=== PATIENT | male | born 1970 | race Caucasian/White ===

== ENCOUNTER 2020-01-24 08:29 | Day surgery (SDC) | payer BC ==
[~2020-01-24 08:29] MED LIST: Lactated Ringers 1,000 ML IV SCH; Sodium Chloride 0.9% 10 ML SDV IV PRN; Sodium Chloride 0.9% 10 ML Syringe FLUSH PRN; Sodium Chloride 0.9% 2.5 ML Syringe FLUSH PRN
--- NOTE | 2020-01-24 09:41 | PCM.PREANE ---
Preanesthetic Assessment - Anesthesia/Transfusion/Family Hx Anesthesia History: Prior Anesthesia Without Reaction Family History of Anesthesia Reaction: No Transfusion History: No Prior Transfusion(s) - Review of Systems General: No Symptoms Pulmonary: No Symptoms Cardiovascular: No Symptoms Gastrointestinal: No Symptoms Neurological: No Symptoms Other: Reports: None - Physical Assessment NPO Status Date: 01/23/20 NPO Status Time: 23:00 Vital Signs: Last Vital Signs Temp 98.2 F 01/24/20 08:50 Pulse 75 01/24/20 08:50 Resp 16 01/24/20 08:50 BP 136/82 01/24/20 08:50 Pulse Ox 96 01/24/20 08:50 Height: 6 ft Weight: 97.522 kg ASA Class: 2 Mental Status: Alert & Oriented x3 Airway Class: Mallampati = 2 Dentition: Reports: Normal Dentition ROM/Head Extension: Full Lungs: Clear to Auscultation, Normal Respiratory Effort, Crackles Cardiovascular: Regular Rhythm - Allergies Allergies/Adverse Reactions: Allergies Allergy/AdvReac Type Severity Reaction Status Date / Time No Known Allergies Allergy Verified 01/17/20 10:27 - Blood Blood Available: No - Anesthesia Plan Pre-Op Medication Ordered: None (PMH: htn) - Acknowledgements Anesthesia Type Planned: MAC Pt an Appropriate Candidate for the Planned Anesthesia: Yes Alternatives and Risks of Anesthesia Discussed w Pt/Guardian: Yes Pt/Guardian Understands and Agrees with Anesthesia Plan: Yes PreAnesthesia Questionnaire HEENT History: Reports: Other (See Below) Other HEENT History: wears contacts Cardiovascular History: Reports: Hypertension Musculoskeletal History: Reports: Fracture Other Musculoskeletal History: hx of fx left clavicle and left ring finger Neurological History: Reports: Migraines Other Neuro History: takes Ibuprofen for Migraines - Past Surgical History Head Surgeries/Procedures: Reports: None GI Surgical History: Reports: Hernia, Inguinal Other GI Surgeries/Procedures: right Inguinal Hernia repair as a baby - SUBSTANCE USE Smoking Status *Q: Never Smoker Recreational Drug Use History: No - HOME MEDS Home Medications: Home Meds Calcium Carbonate/Vitamin D3 [Calcium 500 mg Chewable Tablet] 2 tab PO DAILY [History] Cetirizine [ZyrTEC] 10 mg PO DAILY 01/17/20 [History] Ibuprofen 200 mg PO ASDIRECTED PRN 01/17/20 [History] lisinopriL [Lisinopril] 10 mg PO QAM 01/17/20 [History] - CURRENT (IN HOUSE) MEDS Current Meds: Current Medications Lactated Ringer's (Ringers, Lactated) 1,000 mls @ 125 mls/hr IV ASDIRECTED OCLBY Last Admin: 01/24/20 09:14 Dose: 125 mls/hr Sodium Chloride (Saline Flush) 10 ml FLUSH ASDIRECTED PRN PRN Reason: Keep Vein Open Sodium Chloride (Saline Flush) 2.5 ml FLUSH ASDIRECTED PRN PRN Reason: Keep Vein Open Sodium Chloride (Saline Flush) 10 ml FLUSH ASDIRECTED PRN PRN Reason: Keep Vein Open Sodium Chloride (Saline Flush) 2.5 ml FLUSH ASDIRECTED PRN PRN Reason: Keep Vein Open Sodium Chloride (Normal Saline) 10 ml IV ASDIRECTED PRN PRN Reason: IV Use
[2020-01-24] MEDS ORDERED: Propofol 200 MG/20 ML SDV ONE (10:28)
[2020-01-24] MEDS ORDERED: Glycopyrrolate 0.2 MG/ML SDV ONE (10:29)
[2020-01-24] MEDS ORDERED: Midazolam 1 MG/ML 2 ML SDV ONE (10:29)
[2020-01-24] MEDS ORDERED: fentaNYL 100 MCG/2 ML SDV ONE (10:29)
--- NOTE | 2020-01-24 11:36 | PCM.OPNOTE ---
- General Post-Op/Procedure Note Date of Surgery/Procedure: 01/24/20 Operative Procedure(s): Diagnostic colonoscopy with polypectomy Findings: Small transverse and descending colon polyp, large pedunculated polyp in sigmoid colon @ 25cm. Grade 2 hemorrhoids. Diverticulosis Pre Op Diagnosis: Positive cologuard Post-Op Diagnosis: Transverse colon polyp, descending colon polyp, and sigmoid colon polyp. Diverticulosis. Grade 2 hemorrhoids Anesthesia Technique: MAC Primary Surgeon: Mattie Morris Condition: Good
--- NOTE | 2020-01-24 12:31 | PCM.POSTAN ---
POST ANESTHESIA ASSESSMENT - MENTAL STATUS Mental Status: Alert - VITAL SIGNS Vital Signs: Last Vital Signs Temp 36.2 C 01/24/20 11:32 Pulse 70 01/24/20 11:42 Resp 11 L 01/24/20 11:42 BP 97/66 01/24/20 11:42 Pulse Ox 93 L 01/24/20 11:42 - RESPIRATORY Respiratory Status: Respiratory Rate WNL - CARDIOVASCULAR CV Status: Pulse Rate WNL - GASTROINTESTINAL GI Status: No Symptoms - POST OP HYDRATION Hydration Status: Adequate & Stable
--- NOTE | 2020-01-24 12:31 | PCM48HPAN ---
Post Anesthesia Note - EVALUATION WITHIN 48HRS OF ANESTHETIC Vital Signs in Normal Range: Yes Patient Participated in Evaluation: Yes Respiratory Function Stable: Yes Airway Patent: Yes Cardiovascular Function Stable: Yes Hydration Status Stable: Yes Pain Control Satisfactory: Yes Nausea and Vomiting Control Satisfactory: Yes Mental Status Recovered: Yes Vital Signs: Last Vital Signs Temp 36.2 C 01/24/20 11:32 Pulse 70 01/24/20 11:42 Resp 11 L 01/24/20 11:42 BP 97/66 01/24/20 11:42 Pulse Ox 93 L 01/24/20 11:42
--- NOTE | 2020-01-24 15:08 | OR ---
SURGEON: JHOANA HINES MD DATE OF PROCEDURE: 01/24/2020 PREOPERATIVE DIAGNOSIS: Positive Cologuard test. POSTOPERATIVE DIAGNOSES: 1. Diverticulosis. 2. Grade 2 hemorrhoids. 3. Descending colon polyp. 4. Transverse colon polyp. 5. Sigmoid colon polyp. PROCEDURE PERFORMED: Diagnostic colonoscopy. ANESTHESIA: MAC. INSTRUMENT USED: Olympus colonoscope. EXTENT OF EXAM: To the cecum. PREPARATION: Good. LIMITATIONS: None. INDICATIONS FOR EXAMINATION: The patient is a 49-year-old male who recently underwent a screening Cologuard test. This came back positive. I explained the need for diagnostic colonoscopy with possible polypectomy or biopsy. I explained the procedure, expected perioperative course, and risks. The patient verbalized understanding and wishes to proceed. PROCEDURE IN DETAIL: The patient was brought into the OR and placed on the OR table in supine position. A time-out was completed verifying the patient's name, age, date of , allergies, and procedure to be performed. Monitored anesthesia care was induced and continuous oxygen was provided via nasal cannula throughout the procedure. After adequate sedation was achieved, a digital rectal exam was performed. The patient was noted to have grade 2 hemorrhoids. A well- lubricated colonoscope was inserted in the rectum and advanced under direct visualization to the level of the cecum. The cecum was identified by both visual and anatomic landmarks. A photograph was taken at the cecal cap as well as with the scope retroflexed within the cecum. The scope was then fully withdrawn while examining the color, texture, anatomy, and integrity of mucosa from the cecum to the anal canal. The patient was found to have diverticulosis of the sigmoid colon. He had two very small and sessile polyps; one in the distal transverse colon and one in the proximal descending colon. Both were removed in piecemeal fashion using cold biopsy forceps and labeled accordingly. The patient was then found to have a large pedunculated sigmoid colon polyp at 25 cm. A hot snare was used to transect this using cautery along the stalk of the polyp. The polyp was sent to pathology labeled as sigmoid colon polyp. The area was then inked with 1 mL of marking ink for identification in the future. The area appeared to be hemostatic at the end of the case. The scope was then brought into the rectum and retroflexed to allow visualization of the anal canal opening. This appeared normal and a photograph was taken. The scope was then straightened out and fully withdrawn. The cecum to anus time was 24 minutes. The patient tolerated the procedure well and was transferred to the PACU in stable condition. ENDOSCOPIC DIAGNOSES: 1. Diverticulosis. 2. Grade 2 hemorrhoids. 3. Descending colon polyp. 4. Transverse colon polyp. 5. Sigmoid colon polyp. RECOMMENDATIONS: Follow up in clinic in 2 weeks. PRASAD GUERRERO /[id number]
== END 2020-01-24 12:35 | disposition home or self-care (01) ==
LOC: MW.SDS 08:29
PROVIDERS: ATTEND Surgery
DX: D12.3 Benign neoplasm of transverse colon (principal); D12.4 Benign neoplasm of descending colon; D12.5 Benign neoplasm of sigmoid colon; K57.30 Diverticulosis of large intestine without perforation or abscess without bleeding; K64.1 Second degree hemorrhoids; I10 Essential (primary) hypertension; Z79.899 Other long term (current) drug therapy
CPT/HCPCS: 45380; 45381; 45385; 88305; J2250; J2704; J3010; J3490; J7120

== ENCOUNTER 2021-02-07 07:15 | Day surgery (SDC) | payer BC ==
--- NOTE | 2021-02-07 07:55 | PCM.PREANE ---
Preanesthetic Assessment - Anesthesia/Transfusion/Family Hx Anesthesia History: Prior Anesthesia Without Reaction Family History of Anesthesia Reaction: No Transfusion History: No Prior Transfusion(s) - Review of Systems General: No Symptoms Pulmonary: No Symptoms Cardiovascular: No Symptoms Gastrointestinal: No Symptoms Neurological: No Symptoms Other: Reports: None - Physical Assessment NPO Status Date: 02/07/21 NPO Status Time: 00:01 Vital Signs: Last Vital Signs Temp 97.2 F 02/07/21 07:22 Pulse 70 02/07/21 07:22 Resp 15 02/07/21 07:22 BP 118/86 02/07/21 07:22 Pulse Ox 94 L 02/07/21 07:22 Height: 6 ft Weight: 219 lb ASA Class: 2 Mental Status: Alert & Oriented x3 Airway Class: Mallampati = 2 Dentition: Reports: Normal Dentition ROM/Head Extension: Full Lungs: Clear to Auscultation, Normal Respiratory Effort Cardiovascular: Regular Rate, Regular Rhythm - Allergies Allergies/Adverse Reactions: Allergies Allergy/AdvReac Type Severity Reaction Status Date / Time No Known Allergies Allergy Verified 02/01/21 08:11 - Anesthesia Plan Pre-Op Medication Ordered: None - Acknowledgements Anesthesia Type Planned: General Anesthesia Pt an Appropriate Candidate for the Planned Anesthesia: Yes Alternatives and Risks of Anesthesia Discussed w Pt/Guardian: Yes Pt/Guardian Understands and Agrees with Anesthesia Plan: Yes Additional Comments: npo htn no cv problems hayfever tob none etoh 6-8 beers a week bmi 30 par no questions PreAnesthesia Questionnaire HEENT History: Reports: Other (See Below) Other HEENT History: wears contacts/glasses Cardiovascular History: Reports: Hypertension Respiratory History: Reports: None Gastrointestinal History: Reports: Colon Polyp Genitourinary History: Reports: None Musculoskeletal History: Reports: Fracture Other Musculoskeletal History: hx of fx left clavicle and left ring finger Neurological History: Reports: Migraines Other Neuro History: takes Ibuprofen for Migraines Psychiatric History: Reports: None Endocrine/Metabolic History: Reports: None Hematologic History: Reports: None Immunologic History: Reports: None Oncologic (Cancer) History: Reports: None Dermatologic History: Reports: None - Past Surgical History Head Surgeries/Procedures: Reports: None HEENT Surgical History: Reports: None Cardiovascular Surgical History: Reports: None Respiratory Surgical History: Reports: None GI Surgical History: Reports: Colonoscopy, Hernia, Inguinal Other GI Surgeries/Procedures: right Inguinal Hernia repair as a baby Male Surgical History: Reports: None Endocrine Surgical History: Reports: None Neurological Surgical History: Reports: None Musculoskeletal Surgical History: Reports: None Oncologic Surgical History: Reports: None Dermatological Surgical History: Reports: None - SUBSTANCE USE Tobacco Use Status *Q: Never Tobacco User - HOME MEDS Home Medications: Home Meds Calcium Carbonate/Vitamin D3 [Calcium 500 mg Chewable Tablet] 2 tab PO DAILY 01/17/20 [History] Cetirizine [ZyrTEC] 10 mg PO DAILY 01/17/20 [History] Ibuprofen 1 - 2 tab PO ASDIRECTED PRN 01/17/20 [History] lisinopriL [Lisinopril] 20 mg PO QAM 01/17/20 [History] - CURRENT (IN HOUSE) MEDS Current Meds: Current Medications Lactated Ringer's (Ringers, Lactated) 1,000 mls @ 125 mls/hr IV ASDIRECTED COLBY Last Admin: 02/07/21 07:42 Dose: 125 mls/hr Documented by: Sodium Chloride (Sodium Chloride 0.9% 10 Ml Syringe) 10 ml FLUSH ASDIRECTED PRN PRN Reason: Keep Vein Open Sodium Chloride (Sodium Chloride 0.9% 2.5 Ml Syringe) 2.5 ml FLUSH ASDIRECTED PRN PRN Reason: Keep Vein Open Sodium Chloride (Sodium Chloride 0.9% 10 Ml Syringe) 10 ml FLUSH ASDIRECTED PRN PRN Reason: Keep Vein Open Sodium Chloride (Sodium Chloride 0.9% 2.5 Ml Syringe) 2.5 ml FLUSH ASDIRECTED PRN PRN Reason: Keep Vein Open Sodium Chloride (Sodium Chloride 0.9% 10 Ml Sdv) 10 ml IV ASDIRECTED PRN PRN Reason: IV Use
[2021-02-07] MEDS ORDERED: Propofol 200 MG/20 ML SDV ONE ×2 (08:21→09:05)
[2021-02-07] MEDS ORDERED: Lidocaine 2% 5 ML SDV ONE (08:58)
--- NOTE | 2021-02-07 09:21 | PCM.OPNOTE ---
- General Post-Op/Procedure Note Date of Surgery/Procedure: 02/07/21 Operative Procedure(s): Diagnostic colonoscopy Findings: Diverticulosis of sigmoid colon. No re-occurrence of polyps Pre Op Diagnosis: History of colon polyps Post-Op Diagnosis: Diverticulosis Anesthesia Technique: FAREED Primary Surgeon: Mattie Morris Condition: Good
--- NOTE | 2021-02-07 09:43 | PCM.POSTAN ---
POST ANESTHESIA ASSESSMENT - MENTAL STATUS Mental Status: Alert (no anesthetic problems), Oriented - VITAL SIGNS Vital Signs: Last Vital Signs Temp 146.1 F H 02/07/21 09:13 Pulse 62 02/07/21 09:39 Resp 13 02/07/21 09:39 BP 107/74 02/07/21 09:39 Pulse Ox 96 02/07/21 09:39 - RESPIRATORY Respiratory Status: Respiratory Rate WNL, Airway Patent, O2 Saturation Stable - CARDIOVASCULAR CV Status: Pulse Rate WNL, Blood Pressure Stable - GASTROINTESTINAL GI Status: No Symptoms - POST OP HYDRATION Hydration Status: Adequate & Stable
--- NOTE | 2021-02-07 11:25 | PCM48HPAN ---
Post Anesthesia Note - EVALUATION WITHIN 48HRS OF ANESTHETIC Vital Signs in Normal Range: Yes Patient Participated in Evaluation: Yes Respiratory Function Stable: Yes Airway Patent: Yes Cardiovascular Function Stable: Yes Hydration Status Stable: Yes Pain Control Satisfactory: Yes Nausea and Vomiting Control Satisfactory: Yes Mental Status Recovered: Yes Vital Signs: Last Vital Signs Temp 97.5 F 02/07/21 09:42 Pulse 64 02/07/21 09:42 Resp 14 02/07/21 09:42 BP 116/81 02/07/21 09:42 Pulse Ox 96 02/07/21 09:42
--- NOTE | 2021-02-08 17:10 | OR ---
SURGEON: MATTIE MORRIS MD DATE OF PROCEDURE: 02/07/2021 PREOPERATIVE DIAGNOSES: 1. History of colon polyps. 2. History of diverticulosis. POSTOPERATIVE DIAGNOSIS: Diverticulosis. PROCEDURE PERFORMED: Diagnostic colonoscopy. PRIMARY SURGEON: Endoscopist, Dr. Mattie Morris. ANESTHESIA: MAC. INSTRUMENT USED: Olympus colonoscope. EXTENT OF EXAM: To the cecum. PREPARATION: Good. LIMITATIONS: None. INDICATIONS FOR EXAMINATION: The patient is a 50-year-old male who underwent a screening colonoscopy last year. He was found to have 2 very large polyps within the colon. Given their size, I felt it necessary to do a 1-year repeat colonoscopy to ensure that the patient had no evidence of recurrence. The patient also was found to have diverticulosis on his initial exam. The patient and I discussed the procedure, expected perioperative course, and the risks. He verbalized understanding and wishes to proceed. PROCEDURE IN DETAIL: The patient was brought to the endoscopy suite and placed in a left lateral decubitus position. A time-out was completed verifying the patient's name, age, date of , allergies, and procedure to be performed. Monitored anesthesia care was induced and continuous oxygen was provided via nasal cannula throughout the procedure. After adequate sedation was achieved, a digital rectal exam was performed. This exam was within normal limits. A well-lubricated colonoscope was inserted into the rectum and advanced under direct visualization to the level of the cecum. The cecum was identified by both visual and anatomic landmarks. A photograph was taken of the cecal cap; however, I was unable to retroflex the scope within the cecum due to looping of the scope more proximally. The scope was then fully withdrawn while examining the color, texture, anatomy, and integrity of the mucosa from the cecum to the anal canal. The patient was noted to have sigmoid diverticulosis. I closely inspected the areas where I had taken out the polyps last year. There was no evidence of any recurrence. The scope was then brought into the rectum and retroflexed to allow visualization of the anal canal opening. This appeared normal and a photograph was taken. The scope was straightened out and fully withdrawn. The cecum to anus time was 8 minutes. The patient tolerated the procedure well and was transferred to the PACU in stable condition. ENDOSCOPIC DIAGNOSIS: Diverticulosis. RECOMMENDATIONS: Follow up in clinic in 5 years for a repeat colonoscopy. PRASAD GUERRERO /[id number]
== END 2021-02-07 10:05 | disposition home or self-care (01) ==
LOC: MW.SDS 07:15
PROVIDERS: ATTEND Surgery
DX: K57.30 Diverticulosis of large intestine without perforation or abscess without bleeding (principal); Z86.010 Personal history of colon polyps; I10 Essential (primary) hypertension; Z79.899 Other long term (current) drug therapy; Z98.890 Other specified postprocedural states
CPT/HCPCS: 45378; J2704; J7120; 00811